=== PATIENT | female | born 1970 | race Caucasian/White ===

== ENCOUNTER 2017-05-21 11:43 | Emergency (ER) | payer SELFPAY ==
[~2017-05-21] VITALS: Ht 172.7 cm; Wt 84.0 kg
[2017-05-21] MEDS ORDERED: MORPHINE SULFATE 10 MG/ML CPJ IM ONE (14:45)
[2017-05-21 16:37] VITALS: BP 182/90
[2017-05-21] MEDS ORDERED: BACITRACIN ZINC OINT UDPKT TOP ONE (17:00)
[2017-05-21] MEDS ORDERED: HYDROCODONE/ACETAMINOPHEN 5/325MG TABLET PO ONE (17:00)
== END 2017-05-21 16:51 | disposition home or self-care (01) ==
LOC: ER 12:53
DX: S16.1XXA Strain of muscle, fascia and tendon at neck level, initial encounter (principal); S20.219A Contusion of unspecified front wall of thorax, initial encounter; S80.01XA Contusion of right knee, initial encounter; M25.562 Pain in left knee; M25.551 Pain in right hip; R03.0 Elevated blood-pressure reading, without diagnosis of hypertension; V49.40XA Driver injured in collision with unspecified motor vehicles in traffic accident, initial encounter; Y93.89 Activity, other specified; Y92.410 Unspecified street and highway as the place of occurrence of the external cause
CPT/HCPCS: 71045; 72125; 73522; 73562; 81025; 96372; 99284; J2270; L0172